=== PATIENT | female | born 1965 | race Caucasian/White ===

== ENCOUNTER 2017-02-20 17:34 | Emergency (ER) | payer SELFPAY ==
[~2017-02-20] VITALS: Ht 172.7 cm; Wt 101.0 kg
[~2017-02-20 17:34] MED LIST: MECL25CH PO
[2017-02-20 17:37] VITALS: BP 132/85; PULSE 89; RESP 16; TEMP 98.4; O2SAT 99
[2017-02-20] MEDS ORDERED: CLAR10CA3 PO (21:05)
[2017-02-20] MEDS ORDERED: PRED-503 PO (21:05)
--- NOTE | 2017-02-20 21:12 | PD ---
HPI Chief Complaint: Skin Problem Time Seen by Provider: 20:46 Travel History International Travel<30 days: No Contact w/Intl Traveler<30days: No Traveled to known affect area: No History of Present Illness HPI 51-year-old white female presents to emergency Department with complaints of a rash in her feet for the past month. She states now in the past week she developed a rash scattered on her body. She states it is been very pruritic. This started off as small little pimples which she scratches. She states that she feels that the initial rash in her feet came from a new soap detergent that she use on her shoes. She now feels that the rash in her body is from a foot sprain that she has been using. She denies any fever chills. No difficulty swallowing.Shortness of breath or wheezing. The lesions are very pruritic. She denies any history of allergic reactions. No fever or chills. No upper respiratory tract symptoms. PFSH Past Medical History Anxiety: Yes Diminished Hearing: No GERD: Yes Herniated Disk: Yes (AND DDD / SCOLIOSIS) Reproductive: Yes (LEEP AND UTERINE FIBROIDS) Immunizations Current: Yes Tetanus Vaccination: < 5 Years ?: Not LMP: 02/06/2017 : 2 Para: 2 Miscarriage: 0 : 0 Past Surgical History Surgical History: No Previous Surgery Social History Alcohol Use: No Tobacco Use: No Substance Use: No Allergies-Medications (Allergen,Severity, Reaction): Coded Allergies: No Known Allergies (Unverified , 02/20/17) Reported Meds & Prescriptions Reported Meds & Active Scripts Active Meclizine Hcl (Meclizine HCl) 25 Mg Chw 25 Mg PO TID Review of Systems General / Constitutional: No: Fever Eyes: No: Visual changes HENT: No: Headaches Cardiovascular: No: Chest Pain or Discomfort Respiratory: No: Shortness of Breath Gastrointestinal: No: Abdominal Pain Genitourinary: No: Dysuria Musculoskeletal: No: Pain Skin: Positive Rash, Positive Itching, Positive Lesions Neurologic: No: Weakness Psychiatric: No: Depression Endocrine: No: Polydipsia Hematologic/Lymphatic: No: Easy Bruising Physical Exam Narrative GENERAL: Well-developed, well-nourished in no acute distress. Nontoxic appearing. HEAD: Normocephalic, atraumatic. EYES: Pupils equal round and reactive. Extraocular motions intact. No scleral icterus. No injection or drainage. ENT: TMs clear without erythema. The external auditory canals clear. Nose: clear . Posterior pharynx is pink and moist. No tonsillar edema or exudate. Uvula midline. Airway patent. NECK: Trachea midline.Supple, nontender, moves head freely. No central bony tenderness or spasm. CARDIOVASCULAR: Regular rate and rhythm without murmurs, gallops, or rubs. RESPIRATORY: Clear to auscultation. Breath sounds equal bilaterally. No wheezes , rales, or rhonchi. GASTROINTESTINAL: Abdomen soft, non-tender, nondistended. No hepato-splenomegaly , or palpable masses. No guarding. EXTREMITIES: No clubbing, cyanosis, or edema. No joint tenderness, effusion, or edema noted. BACK: Nontender without deformity or crepitance. No flank tenderness. Skin: Patient has multiple scattered subcentimeter papular lesions which have become scaliness created. These are scattered on the trunk, extremities. There is a large amount of erythema and scaling to the dorsums of both feet and a sandal distribution. There is some slight skin breakdown and serous drainage. There is no signs of any secondary wound infections. Data Data Last Documented VS Vital Signs Date Time Temp Pulse Resp B/P (MAP) Pulse Ox O2 Delivery O2 Flow Rate FiO2 02/20/17 17:37 98.4 89 16 132/85 (101) 99 [facility] Medical Decision Making Medical Screen Exam Complete: Yes Emergency Medical Condition: Yes Medical Record Reviewed: Yes Differential Diagnosis MDM: High Differential diagnoses: Abscess, folliculitis, cellulitis, lymphangitis, abrasion, contact dermatitis, fungal dermatitis, viral dermatitis, allergic reaction Narrative Course The patient appeared to have a contact dermatitis to her feet from her sandals which also now have a secondary fungal component. She has been wearing occlusive plastic dressings over her feet. She has scattered lesions on her and extremities. Etiology of the lesions on the trunk or not completely clear. I agreed to treat her for allergic reaction but these may be an viral versus a contact type process. There is no signs of any bacterial infection. The patient is encouraged to take Benadryl and the prescriptions. Patient is also advised to let her feet dry out and be open to the air. He is instructed to use Lamisil. She may follow-up with her primary care doctor or health and wellness manager. Diagnosis Primary Impression: Contact dermatitis Qualified Codes: L25.9 - Unspecified contact dermatitis, unspecified cause Additional Impression: Tinea pedis Qualified Codes: B35.3 - Tinea pedis Patient Instructions: General Instructions Additional Instructions: Rest. Elevation. Keep clean and dry. Which her feet open to the area as much as possible. Stop Using the plastic bag in her shoe. Lamisil AT on your feet. Medications as directed. May take 50 mg of Benadryl every 6 hours as needed for additional itching Follow-up with a primary care doctor or a health and wellness manager in the next week. Return to the ER for emergencies Med/Other Pt SpecificInfo: Prescription(s) given Scripts Prednisone (Deltasone) 20 Mg Tab 20 MG PO TID, #21 TAB 0 Refills Prov: Savita Casey DO 02/20/17 Loratadine (Claritin) 10 Mg Cap 10 MG PO DAILY for Allergy Management for 14 Days, #14 CAP 0 Refills Prov: Savita Casey DO 02/20/17 Disposition: 01 DISCHARGE HOME Condition: Stable Rubens Levine Feb 20, 2017 21:12
== END 2017-02-20 21:51 | disposition home or self-care (01) ==
LOC: NEPK 17:34
DX: L25.9 Unspecified contact dermatitis, unspecified cause (principal); B35.3 Tinea pedis
CPT/HCPCS: 99283